=== PATIENT | female | born 1950 | race Caucasian/White ===

== ENCOUNTER 2018-01-07 08:39 | Emergency (ER) | payer MEDICARE, OTHER ==
[2018-01-07 08:55] VITALS: BP 129/88
[2018-01-07] MEDS ORDERED: Gentamicin 0.3% Ophth Soln 5 ML Bottle ONE (09:30)
[2018-01-07] MEDS ORDERED: Sulfamethoxazole/Trimethoprim 800-160 MG Tab ONE (09:30)
--- NOTE | 2018-01-07 13:24 | ER ---
DATE OF SERVICE: 01/07/2018 SUBJECTIVE: This 67-year-old woman presents complaining of maxillary sinus content, sore throat, postnasal drip, productive green cough, left eye injected, matted together today, mild nausea. No vomiting. Tactile temperature, slight headache, sore throat. No difficulty breathing. PHYSICAL EXAMINATION: HEENT: Left eye is sclerae. Conjunctivae are both injected. There is some greenish mattering noted on her eyelashes. Ears are clear bilaterally and symmetrically over the tympanic membrane. Face, she has bilateral maxillary sinus tenderness. Throat with cobblestoning. NECK: Supple with shotty tender nodes on the left. LUNGS: Good air movement. No wheezes. No rhonchi. No crackles. HEART: Regular rate and rhythm. Normal S1, S2. ABDOMEN: Benign. ASSESSMENT: 1. Sinusitis. 2. Bacterial conjunctivitis. PLAN: Cipro ophthalmic drops 2 drops in both eyes four times a day and Bactrim DS 1 p.o. b.i.d. x10 days. Follow up in clinic if symptoms persist. SANDY /[id number] COSTA
== END 2018-01-07 09:43 | disposition home or self-care (01) ==
LOC: LB.ED 08:39
DX: J32.9 Chronic sinusitis, unspecified (principal); H10.9 Unspecified conjunctivitis
CPT/HCPCS: 99283; A9270

== ENCOUNTER 2020-07-24 13:47 | Emergency (ER) | payer MEDICARE, OTHER ==
[2020-07-24 14:29] VITALS: BP 148/85; PULSE 93
--- NOTE | 2020-07-24 15:04 | EDM.PDOC ---
ED HPI GENERAL MEDICAL PROBLEM - General Chief Complaint: General Stated Complaint: ARM PAIN Time Seen by Provider: 07/24/20 14:00 Source of Information: Reports: Patient History Limitations: Reports: No Limitations - History of Present Illness INITIAL COMMENTS - FREE TEXT/NARRATIVE: 70 year old known patient of lymphedema ,Pretty thyroiditis & morbidly came to ED with pain in left forearm for the last two weeks -the pain is dull ache starts from left elbow & goes to left arm . 8/10 worse with movement .The patient told that 3 [place] back [place] & she was feeling fine .After 2 days of fall ,she felt pain in left arm - denies any swelling ,redness or discoloration of left arm denies fever,N/V headache ,blurry vision ,chest pain & shortness of breath ,co ugh wheezing ,abd pain or urinary complain Onset: Today, Gradual Duration: Day(s): (8) Location: Reports: Upper Extremity, Left Quality: Reports: Ache, Dull Severity: Moderate Improves with: Reports: Rest Worsens with: Reports: Movement Context: Reports: Trauma Left Lower Arm Pain Score (Numeric/FACES): 8 - Related Data Allergies Allergy/AdvReac Type Severity Reaction Status Date / Time piroxicam [From Feldene] Allergy Unknown Swelling Verified 07/24/20 14:25 Home Meds: Home Meds Levothyroxine Sodium [Tirosint] 112 mg PO DAILY 07/24/20 [History] Past Medical History Musculoskeletal History: Reports: Fibromyalgia, Other (See Below) Other Musculoskeletal History: fibermyalgia Endocrine/Metabolic History: Reports: Other (See Below) (pretty throiditis, lemphedema) Immunologic History: Reports: Other (See Below) Other Immunologic History: Hoshimotos disease - Past Surgical History Other Respiratory Surgeries/Procedures: catract surgery. knee arthroscopy Social & Family History - Caffeine Use Caffeine Use: Reports: None - Recreational Drug Use Recreational Drug Use: No ED ROS GENERAL - Review of Systems Review Of Systems: See Below Constitutional: Reports: No Symptoms HEENT: Reports: No Symptoms Respiratory: Reports: Shortness of Breath, Wheezing, Pleuritic Chest Pain, Cough, Sputum, Hemoptysis Cardiovascular: Reports: No Symptoms, Chest Pain, Dyspnea on Exertion, Edema, Lightheadedness, Orthopnea, Palpitations GI/Abdominal: Reports: No Symptoms, Abdominal Pain Musculoskeletal: Reports: Arm Pain Neurological: Reports: No Symptoms ED EXAM, GENERAL - Physical Exam Exam: See Below Exam Limited By: No Limitations General Appearance: Alert, WD/WN, No Apparent Distress Head: Atraumatic, Normocephalic Neck: Normal Inspection Respiratory/Chest: No Respiratory Distress, Lungs Clear, Normal Breath Sounds, No Accessory Muscle Use, Chest Non-Tender Cardiovascular: Normal Peripheral Pulses, Regular Rate, Rhythm, No Edema, No Gallop, No JVD, No Murmur, No Rub GI/Abdominal: Normal Bowel Sounds, Soft, Non-Tender, No Organomegaly, No Distention, No Abnormal Bruit Neurological: Alert, Oriented, No Motor/Sensory Deficits Lymphatic: Other (B/L lymphedema) Course - Vital Signs Text/Narrative:: 70 years old female came with left forearm pain x8 days h/o [place] vitals monitored X ray of left form ordered tab Toradol po 10 mg ordered to reduce pain I myself review x rays Last Recorded V/S: Last Vital Signs Temp 98.6 F 07/24/20 14:27 Pulse 93 07/24/20 14:27 Resp 16 07/24/20 14:27 BP 148/85 H 07/24/20 14:27 Pulse Ox 96 07/24/20 14:27 - Orders/Labs/Meds Orders: Active Orders 24 hr Category Date Time Status Forearm 2V Lt [CR] Stat Exams 07/24/20 14:34 Ordered Departure - Departure Time of Disposition: 15:30 Disposition: Home, Self-Care 01 Clinical Impression: Left arm pain - Discharge Information Care Plan Goals: Assessment & Plan X ray done I myself review the x ray & there was no fracture -However the possibility of hair line fracture cannot be ruled without CT scan Put ice on the painful area Tab Toradol 10 mg poqd given stat Left arm was placed in left arm to reduce the stress & strain on left forearm - The patient was feeling comfortable For pain ,she agreed to use Tylenol or ibuprofen F/U with PCP as needed Sepsis Event Note (ED) - Evaluation Sepsis Screening Result: No Definite Risk - Focused Exam Vital Signs: Vital Signs Temp Pulse Resp BP Pulse Ox 07/24/20 14:27 98.6 F 93 16 148/85 H 96 - Problem List & Annotations (1) Left arm pain SNOMED Code(s): 669088106 Code(s): M79.602 - PAIN IN LEFT ARM Status: Acute Priority: Medium Current Visit: Yes Onset Date: ~07/17/20 Annotation/Comment:: f/u with PCP - My Orders Last 24 Hours: My Active Orders 07/24/20 14:34 Forearm 2V Lt [CR] Stat - Assessment/Plan Last 24 Hours: My Active Orders 07/24/20 14:34 Forearm 2V Lt [CR] Stat
[2020-07-24] MEDS ORDERED: Ketorolac 10 MG Tab PO ONE (15:13)
--- NOTE | 2020-07-24 16:09 | CR ---
Date of Service: 07/24/20 Clinical Data: arm pain LEFT FOREARM: No priors. There is mild negative ulnar variance. No acute fracture or dislocation. No lytic or blastic bone lesions. 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 [id number]
== END 2020-07-24 15:35 | disposition home or self-care (01) ==
LOC: LB.ED 13:47
DX: M79.632 Pain in left forearm (principal); E06.3 Autoimmune thyroiditis; Z79.899 Other long term (current) drug therapy; Z88.8 Allergy status to other drugs, medicaments and biological substances
CPT/HCPCS: 73090; 99283; A9270

== ENCOUNTER 2022-05-18 00:41 | Inpatient (IN) | payer MEDICARE, OTHER ==
[2022-05-18] MEDS ORDERED: Sodium Chloride 0.9% 10 ML Syringe FLUSH PRN (01:02)
[2022-05-18] MEDS ORDERED: Nitroglycerin 0.4 MG Tab.SL SL ONE (01:38)
[2022-05-18] MEDS ORDERED: Aspirin 81 MG Tab.Chew PO ONE ×2 (01:38→03:23)
[2022-05-18] MEDS ORDERED: Morphine 4 MG/ML VIAL IVPUSH ONE ×2 (01:51→04:06)
[2022-05-18] MEDS: Lactated Ringers 1,000 ML IV SCH ×2 (02:01→11:30)
[2022-05-18] MEDS ORDERED: Sodium Chloride 0.9% 50 ML SDV FLUSH ONE (02:17)
[2022-05-18] MEDS ORDERED: Iopamidol 755 Mg/ML 100 ML Bottle IV SCH (02:30)
[2022-05-18] MEDS ORDERED: Heparin Sodium/D5W 25,000 UNITS/500 ML BAG IV SCH (02:45)
[2022-05-18] MEDS ORDERED: ALTEPLASE IV ONE (03:18)
[2022-05-18] MEDS ORDERED: Heparin Sodium 5,000 Units/ML Vial IVPUSH ONE ×2 (03:19→19:57)
[2022-05-18] MEDS ORDERED: Tenecteplase 50 MG Kit IV ONE (03:37)
[2022-05-18] MEDS ORDERED: Morphine 4 MG/ML VIAL ONE (04:08)
[2022-05-18] MEDS ORDERED: Morphine 4 MG/ML VIAL IVPUSH PRN (04:24)
[2022-05-18] MEDS ORDERED: Oxymetazoline 0.05% Nasal Spray 15 ML Bottle ONE (05:47)
[2022-05-18] MEDS ORDERED: LIOTHYRONINE SODIUM 5 MCG PO SCH (08:00)
[2022-05-18] MEDS: Lisinopril 10 MG Tab PO SCH (09:20)
[2022-05-18] MEDS: Heparin Sodium/D5W 25,000 UNITS/500 ML BAG IV SCH ×2 (12:11→14:30)
[2022-05-18] MEDS ORDERED: Oxymetazoline 0.05% Nasal Spray 15 ML Bottle NAS PRN (15:58)
[2022-05-18] MEDS ORDERED: LEVOTHYROXINE SODIUM 112 MCG PO SCH (20:00)
[2022-05-18] MEDS: LIOTHYRONINE SODIUM 5 MCG PO SCH (20:10)
[2022-05-19] MEDS: Heparin Sodium/D5W 25,000 UNITS/500 ML BAG IV SCH ×2 (05:49→23:00)
[2022-05-19] MEDS: Lisinopril 10 MG Tab PO SCH (07:24)
[2022-05-19] MEDS: LIOTHYRONINE SODIUM 5 MCG PO SCH ×2 (07:25→20:28)
[2022-05-19] MEDS: Levothyroxine 112 MCG Tab PO SCH (20:28)
[2022-05-19] MEDS: Cephalexin 500 MG Cap PO SCH (23:25)
[2022-05-20] MEDS: Cephalexin 500 MG Cap PO SCH ×4 (06:03→23:45)
[2022-05-20] MEDS: Lisinopril 10 MG Tab PO SCH (07:16)
[2022-05-20] MEDS: LIOTHYRONINE SODIUM 5 MCG PO SCH ×2 (07:17→19:39)
[2022-05-20] MEDS: Enoxaparin 120 MG/0.8 ML Syringe SUBCUT SCH (13:14)
[2022-05-20] MEDS: Levothyroxine 112 MCG Tab PO SCH (19:39)
[2022-05-21] MEDS: Cephalexin 500 MG Cap PO SCH ×2 (05:59→12:26)
[2022-05-21] MEDS: Lisinopril 10 MG Tab PO SCH (07:54)
[2022-05-21] MEDS: LIOTHYRONINE SODIUM 5 MCG PO SCH (07:54)
[2022-05-21] MEDS: Enoxaparin 120 MG/0.8 ML Syringe SUBCUT SCH (07:55)
[2022-05-21] MEDS ORDERED: Enoxaparin 120 MG/0.8 ML Syringe SUBCUT SCH (09:15)
[2022-05-21 13:28] VITALS: BP 116/63; PULSE 82
== END 2022-05-21 15:45 | disposition home or self-care (01) | DRG 176 ==
LOC: LB.ED 00:41 → LB.MS 04:04 → UNDOADMIN 06:16 → LB.MS 06:16
PROVIDERS: ADMIT Surgery; ATTEND Surgery
DX: I26.99 Other pulmonary embolism without acute cor pulmonale (principal); R09.02 Hypoxemia; D68.32 Hemorrhagic disorder due to extrinsic circulating anticoagulants; I10 Essential (primary) hypertension; Z88.8 Allergy status to other drugs, medicaments and biological substances; E06.3 Autoimmune thyroiditis; Z79.890 Hormone replacement therapy; M79.7 Fibromyalgia; R04.0 Epistaxis; T45.515A Adverse effect of anticoagulants, initial encounter; Z20.822 Contact with and (suspected) exposure to COVID-19; Z79.899 Other long term (current) drug therapy
CPT/HCPCS: 36415; 71045; 71260; 80048; 80053; 83735; 83880; 84100; 84484; 85025; 85027; 85379; 85610; 85730; 87804; 87804-59; 92977; 93005; 96365; 96375; 99285-25; A9270-GY; J1644; J1650; J2270; J3101; J7120; Q9967; U0002